=== PATIENT | male | born 1975 | race Caucasian/White ===

== ENCOUNTER 2020-11-22 11:40 | Emergency (ER) | payer OTHER ==
[~2020-11-22] VITALS: Ht 172.7 cm; Wt 95.0 kg
[2020-11-22] MEDS ORDERED: IBUP-2029 MT (12:12)
[2020-11-22] MEDS ORDERED: IBUPROFEN 600MG TABLET PO ONE (12:15)
[2020-11-22 12:31] VITALS: BP 147/90
== END 2020-11-22 12:52 | disposition home or self-care (01) ==
LOC: ER 11:40
DX: S60.211A Contusion of right wrist, initial encounter (principal); E11.9 Type 2 diabetes mellitus without complications; Y04.0XXA Assault by unarmed brawl or fight, initial encounter; Y93.89 Activity, other specified; Y92.89 Other specified places as the place of occurrence of the external cause; Y99.8 Other external cause status
CPT/HCPCS: 82962; 99282